=== PATIENT | male | born 1975 ===

== ENCOUNTER → 2023-02-06 10:40 | Outpatient (CLI) | payer BC, SELFPAY ==
--- NOTE | ~2023-02-06 | US_ITS ---
Renal-Bladder ultrasound Clinical History: Chronic kidney disease Technique: Real-time sonographic imaging of the kidneys and urinary bladder was performed. Findings: The right kidney measures 11.4 cm in length and the left kidney measures 10.9 cm. There is no hydronephrosis or renal calculus identified. Renal cortical echogenicity is increased. No renal ma ss lesion is identified. The urinary bladder is moderately distended at the time of this exam. No intraluminal echoes are iden tified. No abnormal wall thickening is seen. Impression: Increased renal echogenicity suggests chronic medical renal disease. No hydronephrosis. Reviewed, dictated and finalized at location M. Impression: Increased renal echogenicity suggests chronic medical renal disease. No hydrone phrosis.
== END ==
DX: N18.32 Chronic kidney disease, stage 3b (principal)
CPT/HCPCS: 76775